=== PATIENT | male | born 1955 | race Caucasian/White ===

== ENCOUNTER 2016-08-31 05:39 | Day surgery (SDC) | payer OTHER ==
[~2016-08-31 05:39] MED LIST: FISH OIL 11000 MG/CA PO; LISINOPRIL-HCT1 EAC2 PO; MELOXICAM7.5 M1 PO; MULTIVITAMINS1 EAC6 PO; VITAMIN B12; [UNRECOGNIZED DRUG - OTHER] PO
== END 2016-08-31 11:55 ==
LOC: SHSB 05:39 → ORW 07:20 → PACU 09:38 → SHSB 10:05
PROC: 0WUF4JZ Supplement Abdominal Wall with Synthetic Substitute, Percutaneous Endoscopic Approach (ICD-10-PCS; principal; 2016-08-31)
PROC: 8E0W4CZ Robotic Assisted Procedure of Trunk Region, Percutaneous Endoscopic Approach (ICD-10-PCS; 2016-08-31)
DX: K43.6 Other and unspecified ventral hernia with obstruction, without gangrene (principal); I10 Essential (primary) hypertension; E66.9 Obesity, unspecified; M19.90 Unspecified osteoarthritis, unspecified site; D69.6 Thrombocytopenia, unspecified; Z68.29 Body mass index [BMI] 29.0-29.9, adult; Z79.1 Long term (current) use of non-steroidal anti-inflammatories (NSAID); Z79.899 Other long term (current) drug therapy; Z87.891 Personal history of nicotine dependence; Z98.890 Other specified postprocedural states
CPT/HCPCS: C1781; J0690; J2765